=== PATIENT | female | born 1955 | race Caucasian/White ===

== ENCOUNTER 2020-02-02 07:46 | Outpatient (REF) | payer MEDICARE, SELFPAY ==
[2020-02-02 10:12] LABS: MANUAL DIFF FLAG NO
[2020-02-02 10:21] LABS: Basophils Percent Auto 0.8 % (0-2); Eosinophils Absolute Auto 0.1 X10*3/uL (0.0-0.4); Eosinophils Percent Auto 2.4 % (0-4); Hematocrit 41.5 % (37-47); Hemoglobin 13.6 g/dl (12.0-16.0); Imm Gran Abs Auto 0.01 X10*3/uL (0.00-0.03); Imm Gran Pct Auto 0.2 % (0.0-0.4); Lymphocytes Absolute Auto 1.8 X10*3/uL (1.2-4.9); Lymphocytes Percent Auto 32.8 % (20-40); Mean Corpuscular HGB Conc 32.8 g/dl (31.0-35.0); Mean Corpuscular Volume 91.4 fL (80-98); Mean Platelet Volume 10.4 fL (9.4-12.3); Monocytes Absolute Auto 0.5 X10*3/uL (0.1-1.2); Monocytes Percent Auto 9.6 % (2-11); Neutrophils Absolute Auto 2.9 X10*3/uL (2.0-8.3); Neutrophils Percent Auto 54.2 % (45-73); Platelet Count 303 X10*3/uL (160-400); Red Blood Count 4.54 X10*6/uL (4.20-5.50); White Blood Count 5.3 X10*3/uL (4.8-10.8)
[2020-02-02 11:03] LABS: Alanine Aminotransferase 23 U/L (0-31); Albumin Level 4.6 g/dL (3.5-5.0); Alkaline Phosphatase 50 U/L (39-117); Anion Gap 17 (12-20); Aspartate Amino Transferase 23 U/L (5-31); Bilirubin Total 0.8 mg/dL (0.0-1.0); Blood Urea Nitrogen 11 mg/dL (9-16); Calcium 9.6 mg/dL (8.4-10.2); Carbon Dioxide 27 mmol/L (22-29); Chloride 99 mmol/L (96-108); Cholesterol 218 mg/dL; Estimated Glomerular Filt Rate > 60; Glucose Fasting 104 mg/dL (60-99); HDL Cholesterol 99 mg/dL; LDL Cholesterol Calculated 106 mg/dl; Magnesium 2.3 mg/dL (1.6-2.6); Potassium 4.5 mmol/l (3.3-5.1); Sodium 138 mmol/L (135-145); Total Protein 7.5 g/dL (6.5-8.0); Triglycerides 68 mg/dL
[2020-02-02 11:05] LABS: T4 Thyroxine 8.3 ug/dL (4.5-12.0); Thyroid Stimulating Hormone 0.56 uIU/mL (0.32-4.0); Vitamin D 25-OH Total 51.4 ng/mL (>30)
[2020-02-02 12:46] LABS: Folate > 20.0 ng/mL (> or = 4.0); Vitamin B12 1233 pg/mL (200-900)
== END 2020-02-02 07:47 | disposition home or self-care (01) ==
LOC: HO.10HDL 07:46
PROVIDERS: Visit Provider Internal Medicine
DX: E78.00 Pure hypercholesterolemia, unspecified (principal); M81.0 Age-related osteoporosis without current pathological fracture; I10 Essential (primary) hypertension
CPT/HCPCS: 36415; 80053; 80061; 82306; 82607; 82746; 83735; 84436; 84443; 85025

== ENCOUNTER 2020-05-18 07:57 | Outpatient (REF) | payer MEDICARE, SELFPAY ==
--- NOTE | ~2020-05-18 | MM_ITS ---
EXAMINATION: MM SCREENING DIGITAL BREAST TOMOSYNTHESIS, BILATERAL CLINICAL INFORMATION: Screening. Asymptomatic. The lifetime risk of breast cancer based on the Tyrer-Cuzick Model is 5%. COMPARISON: Mammography: 05/13/2019 and prior studies dating back to 04/21/2010 TECHNIQUE: Digital breast tomosynthesis is performed in both the craniocaudal and mediolateral oblique views along with computer-aided detection (CAD). Synthesized 2D images are generated from the tomosynthesis. FINDINGS: There are scattered areas of fibroglandular density (ACR BI-RADS breast composition Category b). There are shifting fibroglandular tissue with scattered stable asymmetries similar to prior studies. There is no significant mass or architectural abnormality or abnormal calcifications. The axilla and skin contours are unremarkable. MM/MM tomosynthesis screening BI IMPRESSION: No significant changes from prior exams. ASSESSMENT: BI-RADS 2: Benign RECOMMENDATION: Routine annual mammography screening. This patient's information was entered into a reminder system with a target due date for their next mammogram.
--- NOTE | ~2020-05-18 | MM_ITS ---
EXAMINATION: BONE DENSITOMETRY CLINICAL INDICATION: Osteoporosis. COMPARISON: Previous BD dated 02/28/2018 and baseline BD dated 04/21/2010. TECHNIQUE: Using a [employer] DXA System (software version: 13.1) manufactured by [employer], dual-energy x-ray absorptiometry was performed of the lumbar spine and left hip. The images are of good technical quality. Summary results are attached. FINDINGS: AP SPINE L1-L4 (excluding L3): The data of L1-L4 has been changed to exclude the L3 vertebral body, because lumbar scoliosis and multilevel degenerative changes may cause overestimation of lumbar spine density. Current: BMD 1.095 g/cm2, Z-score 1.5, T-score -0.6, normal, 551.8% increase from previous, 185.2% increase from baseline (<5% change is not significant). Prior: BMD 0.168 g/cm2. Baseline: BMD 0.384 g/cm2. LEFT FEMUR, NECK: Current: BMD 0.663 g/cm2, Z-score -0.8, T-score -2.7, osteoporosis. Prior: BMD 0.599 g/cm2. Baseline: BMD 0.719 g/cm2. LEFT FEMUR, TOTAL: Current: BMD 0.593 g/cm2, Z-score -1.7, T-score -3.3, osteoporosis, 6.5% increase from previous, 17.5% decrease from baseline (<5% change is not significant). Prior: BMD 0.557 g/cm2. Baseline: BMD 0.719 g/cm2. IDENTIFIED RISK FACTORS: Menopause, height loss, osteoporosis. HISTORY OF FRACTURE: None listed. MEDICATIONS: Fosamax. MM/XR DEXA axial skeleton IMPRESSION: 1. DIAGNOSIS: Osteoporosis based on the lowest T-score value of -3.3 in the total femur applying World Health Organization criteria. 2. 10-YEAR FRACTURE RISK PREDICTION, FRAX: Major osteoporotic fracture (clinical spine, forearm, hip or shoulder) 13.6%. Hip fracture 3.6%. 3. Treatment Recommendations: NOF guidelines recommend consideration for treatment in postmenopausal women and men age 50 and older presenting with the following: -A hip or vertebral (clinical or morphometric) fracture. -T-score less than or equal to -2.5 at the femoral neck or spine after appropriate evaluation to exclude secondary causes. -Low bone mass at the hip or spine and a 10-year fracture probability by FRAX of greater than or equal to 3% for hip fracture or greater than or equal to 20% for major osteoporotic fracture based on the [place] adapted WHO algorithm. 4. Other Recommendations: All treatment decisions require clinical judgment and consideration of individual patient factors, including patient preferences, comorbidities, previous drug use, risk factors not captured in the FRAX model (e.g. frailty, falls, vitamin D deficiency, increased bone turnover, interval significant decline in bone density) and possible under or overestimation of fracture risk by FRAX. Additional medical evaluation for secondary cause of low bone mineral density may be appropriate. FUTURE SCAN RECOMMENDATION: People with diagnosed cases of osteoporosis or at high risk for fracture should have regular bone mineral density tests. For patients eligible for Medicare, routine testing is allowed once every 2 years. The testing frequency can be increased to one year for patients who have rapidly progressing disease, those who are receiving or discontinuing medical therapy to restore bone mass, or have additional risk factors.
== END 2020-05-18 07:58 | disposition home or self-care (01) ==
LOC: HO.MAMMO 07:57
PROVIDERS: PCP Internal Medicine; Visit Provider Internal Medicine
DX: Z12.31 Encounter for screening mammogram for malignant neoplasm of breast (principal); M81.0 Age-related osteoporosis without current pathological fracture; Z78.0 Asymptomatic menopausal state
CPT/HCPCS: 77063; 77067; 77080

== ENCOUNTER 2021-02-02 07:42 | Outpatient (REF) | payer MEDICARE, SELFPAY ==
[2021-02-02 09:55] LABS: MANUAL DIFF FLAG NO
[2021-02-02 09:58] LABS: Basophils Percent Auto 0.7 % (0-2); Eosinophils Absolute Auto 0.2 X10*3/uL (0.0-0.4); Eosinophils Percent Auto 2.7 % (0-4); Hematocrit 38.8 % (37.0-47.0); Hemoglobin 13.4 g/dl (12.0-16.0); Imm Gran Abs Auto 0.01 X10*3/uL (0.00-0.03); Imm Gran Pct Auto 0.2 % (0.0-0.4); Lymphocytes Percent Auto 36.1 % (20-40); Mean Corpuscular HGB Conc 34.5 g/dl (31.0-35.0); Mean Corpuscular Hemoglobin 31.1 pg (27.0-33.0); Mean Platelet Volume 10.5 fL (9.4-12.3); Monocytes Absolute Auto 0.5 X10*3/uL (0.1-1.2); Monocytes Percent Auto 8.5 % (2-11); Neutrophils Absolute Auto 2.9 x10*3/uL (2.0-8.3); Neutrophils Percent Auto 51.8 % (45-73); Platelet Count 287 X10*3/uL (160-400); Red Blood Count 4.31 X10*6/uL (4.20-5.50); Red Cell Distribution Width 11.9 % (11.0-16.0); White Blood Count 5.5 X10*3/uL (4.8-10.8)
[2021-02-02 10:14] LABS: Estimated Average Glucose 117 mg/dL; Hemoglobin A1c % 5.7 %
[2021-02-02 10:48] LABS: Alanine Aminotransferase 21 U/L (0-31); Albumin Level 4.6 g/dL (3.5-5.0); Alkaline Phosphatase 49 U/L (39-117); Anion Gap 15 (12-20); Aspartate Amino Transferase 21 U/L (5-31); Bilirubin Total 0.7 mg/dL (0.0-1.0); Blood Urea Nitrogen 12 mg/dL (9-16); Carbon Dioxide 25 mmol/L (22-29); Chloride 103 mmol/L (96-108); Cholesterol 228 mg/dL; Estimated Glomerular Filt Rate > 60; Glucose Random 103 mg/dL (60-115); HDL Cholesterol 97 mg/dL; LDL Cholesterol Calculated 116 mg/dl; Potassium 4.3 mmol/L (3.3-5.1); Sodium 139 mmol/L (135-145); Total Protein 7.7 g/dL (6.5-8.0); Triglycerides 75 mg/dL
[2021-02-02 10:56] LABS: Free T4 (Free Thyroxine) 1.01 ng/dL (0.71-1.85); Thyroid Stimulating Hormone 0.96 uIU/mL (0.32-4.0); Vitamin D 25-OH Total 43.1 ng/mL (>30)
[2021-02-02 11:08] LABS: Folate > 20.0 ng/mL (> or = 4.0); Vitamin B12 1186 pg/mL (200-900)
== END 2021-02-02 07:43 | disposition home or self-care (01) ==
LOC: HO.10HDL 07:42
PROVIDERS: Visit Provider Internal Medicine
DX: R73.02 Impaired glucose tolerance (oral) (principal); M81.0 Age-related osteoporosis without current pathological fracture; E78.00 Pure hypercholesterolemia, unspecified; I10 Essential (primary) hypertension
CPT/HCPCS: 36415; 80053; 80061; 82306; 82607; 82746; 83036; 84439; 84443; 85025

== ENCOUNTER 2022-01-26 07:44 | Outpatient (REF) | payer MEDICARE, SELFPAY ==
[2022-01-26 10:33] LABS: MANUAL DIFF FLAG NO
[2022-01-26 10:47] LABS: Basophils Percent Auto 0.3 % (0-2); Eosinophils Absolute Auto 0.1 X10*3/uL (0.0-0.4); Eosinophils Percent Auto 1.3 % (0-4); Hemoglobin 13.2 g/dl (12.0-16.0); Imm Gran Abs Auto 0.01 X10*3/uL (0.00-0.03); Imm Gran Pct Auto 0.1 % (0.0-0.4); Lymphocytes Absolute Auto 1.5 X10*3/uL (1.2-4.9); Lymphocytes Percent Auto 21.1 % (20-40); Mean Corpuscular HGB Conc 33.8 g/dl (31.0-35.0); Mean Corpuscular Hemoglobin 30.3 pg (27.0-33.0); Mean Corpuscular Volume 89.7 fL (80.0-98.0); Mean Platelet Volume 10.1 fL (9.4-12.3); Monocytes Absolute Auto 0.6 X10*3/uL (0.1-1.2); Monocytes Percent Auto 7.8 % (2-11); Neutrophils Absolute Auto 4.9 x10*3/uL (2.0-8.3); Neutrophils Percent Auto 69.4 % (45-73); Platelet Count 282 X10*3/uL (160-400); Red Blood Count 4.35 X10*6/uL (4.20-5.50); Red Cell Distribution Width 12.5 % (11.0-16.0); White Blood Count 7.1 X10*3/uL (4.8-10.8)
[2022-01-26 11:07] LABS: Estimated Average Glucose 117 mg/dL; Hemoglobin A1c % 5.7 %
[2022-01-26 11:28] LABS: Alanine Aminotransferase 22 U/L (0-31); Albumin Level 4.6 g/dL (3.5-5.0); Alkaline Phosphatase 45 U/L (39-117); Anion Gap 17 (12-20); Aspartate Amino Transferase 22 U/L (5-31); Bilirubin Total 0.9 mg/dL (0.0-1.0); Blood Urea Nitrogen 12 mg/dL (9-16); Calcium 9.5 mg/dL (8.4-10.2); Carbon Dioxide 24 mmol/L (22-29); Chloride 102 mmol/L (96-108); Cholesterol 223 mg/dL; Estimated Glomerular Filt Rate > 60; Glucose Fasting 95 mg/dL (60-99); HDL Cholesterol 100 mg/dL; LDL Cholesterol Calculated 112 mg/dl; Sodium 139 mmol/L (135-145); Total Protein 7.4 g/dL (6.5-8.0); Triglycerides 57 mg/dL
[2022-01-26 11:31] LABS: TSH reflex Free T4 0.57 uIU/mL (0.32-4.0)
== END 2022-01-26 07:45 | disposition home or self-care (01) ==
LOC: HO.10HDL 07:44
PROVIDERS: Visit Provider Nurse Practitioner Family
DX: Z13.29 Encounter for screening for other suspected endocrine disorder (principal); I10 Essential (primary) hypertension; E78.00 Pure hypercholesterolemia, unspecified; R73.02 Impaired glucose tolerance (oral)
CPT/HCPCS: 36415; 80053; 80061; 83036; 84443; 85025

== ENCOUNTER → 2022-02-22 08:08 | Outpatient (BNVA) | payer MEDICARE, SELFPAY | PROVIDERS: PCP Internal Medicine; Referring Provider Internal Medicine; Visit Provider Physician Assistant | DX: D12.6 Benign neoplasm of colon, unspecified (principal); Z80.0 Family history of malignant neoplasm of digestive organs | CPT/HCPCS: 99202 ==

== ENCOUNTER 2022-03-07 07:24 | Outpatient (REF) | payer MEDICARE, SELFPAY ==
--- NOTE | ~2022-03-07 | MM_ITS ---
EXAMINATION: MM SCREENING DIGITAL BREAST TOMOSYNTHESIS, BILATERAL CLINICAL INFORMATION: Screening. Asymptomatic. The lifetime risk of breast cancer based on the Tyrer-Cuzick Model is 3.5%. COMPARISON: Mammography: May 18, 2020 and studies dating back to February 10, 2015 TECHNIQUE: Digital breast tomosynthesis is performed in both the craniocaudal and mediolateral oblique views along with computer-aided detection (CAD). Synthesized 2D images are generated from the tomosynthesis. FINDINGS: The breasts are heterogeneously dense, which may obscure small masses (ACR BI-RADS breast composition Category c). There are no new significant masses, abnormal calcifications, or other abnormalities. MM/MM tomosynthesis screening BI IMPRESSION: No significant changes from prior exam. ASSESSMENT: BI-RADS 1: Negative RECOMMENDATION: Routine annual mammography screening. This patient's information was entered into a reminder system with a target due date for their next mammogram.
== END 2022-03-07 07:25 | disposition home or self-care (01) ==
LOC: HO.MAMMO 07:24
PROVIDERS: PCP Internal Medicine; Visit Provider Internal Medicine
DX: Z12.31 Encounter for screening mammogram for malignant neoplasm of breast (principal)
CPT/HCPCS: 77063; 77067

== ENCOUNTER 2022-07-21 07:06 | Day surgery (SDC) | payer MEDICARE, SELFPAY ==
[2022-07-18 10:32] VITALS: BMI 17.6
--- NOTE | 2022-07-20 08:50 | HO.ANESPROP2 ---
Documented by User: Lisa Isaac NP 07/20/22 08:50 HPI - Anesthesia Eval Consult details Narrative: 67yo F for Colonoscopy PMFSH Active Problems Active Problems: All Active Problems (Updated 02/22/22 @ 08:52 by April Ferguson PA-C) Annual physical exam (Acute) Impaired glucose tolerance (Acute) Screening for hypothyroidism (Acute) Encounter for subsequent annual wellness visit (AWV) in Medicare patient (Acute) Breast cancer screening by mammogram (Acute) Tubular adenoma of colon (Acute) Family history of colon cancer (Acute) Hypercholesterolemia (Acute) Osteoporosis (Acute) Hypertension (Acute) Past Medical History Medical History Hypercholesterolemia Hypertension Osteoporosis Family History Family History Father Lung cancer Hypertension Mother Bladder cancer Hypertension Kidney malignancy Brother Colon cancer Sister Colon cancer Surgical History Surgical History History of appendectomy History of colonoscopy Social History Social History Housing: [facility] Alcohol intake: current Alcohol intake frequency: a few times a month Alcohol type: wine Patient Tobacco Use Status: Former Tobacco user Years Smoked: 1985 Are you DNR?: No Advance Directives: No Advance Directives Information Provided: Yes Nutrition Risks: No Nutritional Risk service: No Current occupational status: retired Meds Allergies Allergy/AdvReac Type Severity Reaction Status Date / Time tree nut [TREE NUT] Allergy Intermediate MOUTH Verified 02/22/22 08:12 ITCHES nuts Allergy Unknown oral Uncoded 02/14/22 10:04 swelling Exam Exam Date and Time: July 20, 2022 0850 Height,Weight and Vital Signs: Height 5 ft 5 in Weight 48.081 kg Assessment and Plan Assessment Anesthesia Assessment: Chart Reviewed Documented by User: Isabel Anderson MD 07/21/22 08:55 PMF Past Medical History Medical History Hypercholesterolemia Hypertension Osteoporosis Family History Family History Father Lung cancer Hypertension Mother Bladder cancer Hypertension Kidney malignancy Brother Colon cancer Sister Colon cancer Surgical History Surgical History History of appendectomy History of colonoscopy History of Problems with Anesthesia: No Social History Social History Housing: [facility] Alcohol intake: current Alcohol intake frequency: a few times a month Alcohol type: wine Patient Tobacco Use Status: Former Tobacco user Years Smoked: 1984 Are you DNR?: No Advance Directives: No Advance Directives Information Provided: Yes Nutrition Risks: No Nutritional Risk service: No Current occupational status: retired Meds Allergies Allergy/AdvReac Type Severity Reaction Status Date / Time tree nut [TREE NUT] Allergy Intermediate MOUTH Verified 02/22/22 08:12 ITCHES nuts Allergy Unknown oral Uncoded 02/14/22 10:04 swelling Exam Airway Mallampati Class: II TM Dist: >3cm Neck ROM: Full Loose/Missing/Broken Teeth: No Heart: RRR Lungs: CTA Assessment and Plan Assessment Anesthesia Assessment: Anesthesia Plan Discussed Final Anesthetic Review History of Problems with Anesthesia: No NPO: Yes ASA Class: II Final Preanesthetic Review: Meds/Allgs Chart Reviewed, Consent Obtained/Reviewed and Anes Risks/Benef Reviewed Patient Risk: Low Procedure Risk: Low Anesthetic Plan Anesthetic Plan: MAC: Disposition: Standard PACU
--- NOTE | 2022-07-21 07:20 | MHC.SHP ---
Pre-Procedural Eval Section A Date of Service: 07/21/22 The patient is an INPATIENT: No The History & Physical has been completed within 30 days and I have reviewed it.: No Section B Chief Complaint: Benign neoplasm of colon, Relevant Family History (Specify if Yes): Yes Relevant Social History: Tobacco Use (Former smoker) Present Medications: see Short Stay Collaborative assessment Medical History: Significant History (Hypercholesterolemia Hypertension Osteoporosis) History of Previous Operations: Relevant previous surgery/procedure and date(s) (History of appendectomy History of colonoscopy) Allergies: Allergies Allergy/AdvReac Type Severity Reaction Status Date / Time tree nut [TREE NUT] Allergy Intermediate MOUTH Verified 02/22/22 08:12 ITCHES nuts Allergy Unknown oral Uncoded 02/14/22 10:04 swelling Review of Systems Sugical H&P ROS: Negative: Constitution, Cardiovascular, Respiratory and Gastrointestinal Exam Surgical H&P Exam: Normal: Heart, Normal: Lungs, Normal: Extremities and Normal: Abdomen Plan Diagnosis/Plan: Unchanged I have reviewed the history and physical and performed a pertinent physical examination on my patient. No changes have occurred unless specified. Time Spent With Patient Time: Total time managing care of this patient today ____ minutes.
[2022-07-21] MEDS: Lactated Ringers 1,000 ML 100 ML IVCONT (07:28)
[2022-07-21 07:29] VITALS: BP 138/78; PULSE 83; RESP 18; TEMP 36.6; O2SAT 100
--- NOTE | 2022-07-21 08:25 | W.PM.OPN ---
Operative Note Operative Note Date of Service: 07/21/22 Narrative: COLONOSCOPY TILL CECUM WITH BIOPSIES Pre-op diagnosis: Colon cancer screening, history of colon polyps, family history of colon cancer (brother and sister) Post-op diagnosis:? Colon polyps, diverticulosis, hemorrhoids Endoscopist:? Viola Pompa MD Anesthesia:?MAC Consent: Indications for the procedure and potential complications of bleeding, perforation, reaction to medications and missed diagnosis were discussed with the patient and informed consent was obtained. Instrument: Olympus PCF H 190 L variable stiffness pediatric colonoscope Monitoring: Vital signs and clinical assessment, intermittent blood pressure monitoring, continuous EKG monitoring, Pulse oximetry and Carbon Dioxide monitoring were done throughout the procedure. Please see anesthesia flowsheet. Colon withdrawl time was 20 minutes. Procedure: The patient was placed in the left lateral decubitis position and pre-procedure medications were administered. After a digital rectal examination of the ano-rectum, the video colonoscope was inserted into the rectum and advanced through the colon to the cecum. The colonoscope was slowly withdrawn in a retrograde panoramic fashion and the colon mucosa was carefully examined including a retroflexed view of the rectum. Findings and interventions are described below. Procedure Difficulty: Colon was long and tortuous and there was spasm and some loop formation Findings: Terminal Ileum: Not evaluated Cecum: Normal Ascending Colon: Two 5-7 mm sessile polyps - removed with a cold biopsy Transverse Colon: A 6-7 mm sessile polyp - removed with a cold bx Descending Colon: Normal Sigmoid Colon: Moderate diverticulosis Rectum: Normal Ano-rectum: Hypertrophied anal papillae. Colon preparation: Excellent Impression and Post Procedure Diagnosis: Colonoscopy Findings: Three small polyps removed Moderate diverticulosis seen in the sigmoid colon Plan: Await pathology results Patient has an appointment on 08/07/22 in the GI Clinic with MIRANDA Varela. Repeat Colonoscopy interval based on path results - in 5 years if polyps are adenomatous and due to family hx of colon cancer (brother and sister). Above findings were reviewed with the patient and colon polyps and diverticulosis handouts were given in the discharge area
[2022-07-21 09:23] VITALS: BP 95/68; PULSE 77; RESP 16; TEMP 36.8; O2SAT 100
[2022-07-21 09:38] VITALS: BP 120/73; PULSE 67; RESP 16; TEMP 36.8; O2SAT 100
== END 2022-07-21 10:15 | disposition home or self-care (01) ==
PROVIDERS: PCP Internal Medicine; Visit Provider Internal Medicine Gastroenterology
PROC: 0DJD8ZZ Inspection of Lower Intestinal Tract, Via Natural or Artificial Opening Endoscopic (ICD-10-PCS; CPT 45378; principal; 2022-07-21 08:30)
DX: Z12.11 Encounter for screening for malignant neoplasm of colon (principal); K63.5 Polyp of colon; K57.30 Diverticulosis of large intestine without perforation or abscess without bleeding; K62.89 Other specified diseases of anus and rectum; K56.2 Volvulus; Z86.010 Personal history of colon polyps; Z80.0 Family history of malignant neoplasm of digestive organs; I10 Essential (primary) hypertension; Z79.899 Other long term (current) drug therapy
CPT/HCPCS: 45380; 88305

== ENCOUNTER → 2022-08-07 08:12 | Outpatient (BNVA) | payer MEDICARE, SELFPAY | PROVIDERS: PCP Internal Medicine; Referring Provider Internal Medicine; Visit Provider Physician Assistant | DX: K57.30 Diverticulosis of large intestine without perforation or abscess without bleeding (principal); K63.5 Polyp of colon; Z98.890 Other specified postprocedural states | CPT/HCPCS: 99212 ==

== ENCOUNTER 2023-02-06 08:00 | Outpatient (REF) | payer MEDICARE, SELFPAY ==
[2023-02-06 10:32] LABS: MANUAL DIFF FLAG NO
[2023-02-06 10:41] LABS: Basophils Percent Auto 0.5 % (0-2); Eosinophils Absolute Auto 0.1 X10*3/uL (0.0-0.4); Eosinophils Percent Auto 2.1 % (0-4); Hematocrit 40.2 % (37.0-47.0); Hemoglobin 13.3 g/dl (12.0-16.0); Lymphocytes Absolute Auto 1.6 X10*3/uL (1.2-4.9); Mean Corpuscular HGB Conc 33.1 g/dl (31.0-35.0); Mean Corpuscular Hemoglobin 30.4 pg (27.0-33.0); Mean Corpuscular Volume 91.8 fL (80.0-98.0); Mean Platelet Volume 10.2 fL (9.4-12.3); Monocytes Absolute Auto 0.6 X10*3/uL (0.1-1.2); Monocytes Percent Auto 9.6 % (2-11); Neutrophils Absolute Auto 3.9 x10*3/uL (2.0-8.3); Neutrophils Percent Auto 62.8 % (45-73); Platelet Count 297 X10*3/uL (160-400); Red Blood Count 4.38 X10*6/uL (4.20-5.50); White Blood Count 6.3 X10*3/uL (4.8-10.8)
[2023-02-06 11:05] LABS: Alanine Aminotransferase 24 U/L (0-31); Albumin Level 4.4 g/dL (3.5-5.0); Alkaline Phosphatase 46 U/L (39-117); Anion Gap 11 (12-20); Aspartate Amino Transferase 24 U/L (5-31); Bilirubin Total 0.8 mg/dL (0.0-1.0); Blood Urea Nitrogen 15 mg/dL (9-16); Calcium 10.1 mg/dL (8.4-10.2); Carbon Dioxide 29 mmol/L (22-29); Chloride 101 mmol/L (96-108); Cholesterol 223 mg/dL (<200); Estimated Glomerular Filt Rate > 60; Glucose Random 104 mg/dL (60-115); HDL Cholesterol 98 mg/dL (>40); LDL Cholesterol Calculated 114 mg/dL (<100); Potassium 4.6 mmol/L (3.3-5.1); Sodium 136 mmol/L (135-145); Total Protein 7.6 g/dL (6.5-8.0); Triglycerides 55 mg/dL (<150)
[2023-02-06 11:21] LABS: Thyroid Stimulating Hormone 0.61 uIU/mL (0.32-4.0); Vitamin D 25-OH Total 54.6 ng/mL (>30)
[2023-02-06 11:28] LABS: Folate > 20.0 ng/mL (> or = 4.0); Vitamin B12 1311 pg/mL (200-900)
== END 2023-02-06 08:01 | disposition home or self-care (01) ==
LOC: HO.10HDL 08:00
PROVIDERS: Visit Provider Internal Medicine
DX: E78.00 Pure hypercholesterolemia, unspecified (principal); M81.0 Age-related osteoporosis without current pathological fracture
CPT/HCPCS: 36415; 80053; 80061; 82306; 82607; 82746; 84439; 84443; 85025

== ENCOUNTER 2023-03-09 07:22 | Outpatient (REF) | payer MEDICARE, SELFPAY ==
--- NOTE | ~2023-03-09 | MM_ITS ---
EXAMINATION: BONE DENSITOMETRY CLINICAL INDICATION: Osteoporosis. COMPARISON: Previous BD dated 05/18/2020 and baseline BD dated 04/21/2010. TECHNIQUE: Using a [employer] DXA System (software version: 13.1) manufactured by [employer], dual-energy x-ray absorptiometry was performed of the lumbar spine and left hip. The images are of good technical quality. Summary results are attached. FINDINGS: LEFT FEMUR, NECK: Current: BMD 0.632 g/cm2, Z-score -0.9, T-score -2.9, osteoporosis. Prior: BMD 0.663 g/cm2. Baseline: BMD 0.719 g/cm2. LEFT FEMUR, TOTAL: Current: BMD 0.623 g/cm2, Z-score -1.2, T-score -3.0, osteoporosis, 5.1% increase from previous, 13.4% decrease from baseline (<5% change is not significant). Prior: BMD 0.593 g/cm2. Baseline: BMD 0.719 g/cm2. AP SPINE L3-L4 (excluding L1 and L2): The data of L1-L4 has been changed to exclude the L1 and L2 vertebral bodies, because degenerative sclerosis and scoliosis at these levels may cause overestimation of lumbar spine density. Current: BMD 1.139 g/cm2, Z-score 1.7, T-score -0.5, normal, 14.6% increase from previous, 6.9% increase from baseline (<5% change is not significant). Prior: BMD 0.994 g/cm2. Baseline: BMD 1.065 g/cm2. IDENTIFIED RISK FACTORS: Menopause, height loss, osteoporosis. HISTORY OF FRACTURE: None listed. MEDICATIONS: Multivitamin, bisphosphonate. MM/XR DEXA axial skeleton IMPRESSION: 1. DIAGNOSIS: Osteoporosis based on the lowest T-score value of -3.0 in the total femur applying World Health Organization criteria. 2. 10-YEAR FRACTURE RISK PREDICTION, FRAX: According to the guidelines, FRAX calculation should only be performed on patients in the osteopenia bone density category. Therefore, FRAX was not performed on this patient. 3. Treatment Recommendations: NOF guidelines recommend consideration for treatment in postmenopausal women and men age 50 and older presenting with the following: -A hip or vertebral (clinical or morphometric) fracture. -T-score less than or equal to -2.5 at the femoral neck or spine after appropriate evaluation to exclude secondary causes. -Low bone mass at the hip or spine and a 10-year fracture probability by FRAX of greater than or equal to 3% for hip fracture or greater than or equal to 20% for major osteoporotic fracture based on the [place] adapted WHO algorithm. 4. Other Recommendations: All treatment decisions require clinical judgment and consideration of individual patient factors, including patient preferences, comorbidities, previous drug use, risk factors not captured in the FRAX model (e.g. frailty, falls, vitamin D deficiency, increased bone turnover, interval significant decline in bone density) and possible under or overestimation of fracture risk by FRAX. Additional medical evaluation for secondary cause of low bone mineral density may be appropriate. FUTURE SCAN RECOMMENDATION: People with diagnosed cases of osteoporosis or at high risk for fracture should have regular bone mineral density tests. For patients eligible for Medicare, routine testing is allowed once every 2 years. The testing frequency can be increased to one year for patients who have rapidly progressing disease, those who are receiving or discontinuing medical therapy to restore bone mass, or have additional risk factors.
== END 2023-03-09 07:23 | disposition home or self-care (01) ==
LOC: HO.MAMMO 07:22
PROVIDERS: PCP Internal Medicine; Visit Provider Internal Medicine
DX: Z12.31 Encounter for screening mammogram for malignant neoplasm of breast (principal); Z13.820 Encounter for screening for osteoporosis; M81.0 Age-related osteoporosis without current pathological fracture; Z78.0 Asymptomatic menopausal state
CPT/HCPCS: 77063; 77067; 77080

== ENCOUNTER → 2023-03-09 07:45 | Outpatient (BNV) | payer MEDICARE, SELFPAY | PROVIDERS: PCP Internal Medicine; Visit Provider Radiology Diagnostic Radiology | DX: Z12.31 Encounter for screening mammogram for malignant neoplasm of breast (principal) | CPT/HCPCS: 77063; 77067 ==

== ENCOUNTER 2023-03-26 09:11 | Outpatient (AMB) | payer MEDICARE, SELFPAY ==
[2023-03-26 09:34] VITALS: BP 128/72; PULSE 88; RESP 17; BMI 20.8
--- NOTE | 2023-03-26 09:41 | AM.OFFVISMDC ---
Intake Vital Signs 03/26/23 09:34 Height 4 ft 11.45 in Weight 104 lb 8 oz BMI 20.8 BP 128/72 Blood Pressure Location Lt brachial Position Sitting Respiration 17 Pulse 88 Pulse Source Palpation Intake Visit Reasons: SWV G0439 Intake Note: Patient is here for an Annual Wellness Visit. 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 Today we discussed her [place] of care and end of life planning.. Mammogram: Done February 2023 BI-RADS 1 Bone density- done February 2023 T-score -3.0 better from 2020 T-score -3.3 Vaccines: Up-to-date with COVID vaccine, needs pneumonia, flu and tetanus vaccine Colon cancer screening: Laboratory Tests 01/26/22 02/06/23 07:50 09:05 Random Glucose 104 Fasting Glucose 95 Cholesterol 223 H LDL Cholesterol, C alc 114 H TSH 0.61 HPI Comments History of Present Illness Details reviewed past medical history- yes reviewed surgical / hospitalization history- yes reviewed current medications- yes reviewed family history- yes home safety throw rugs? grab bars? raised toilet seat? working smoke detectors? activities of daily living difficulty bathing or showering? difficulty dressing? difficulty using the toilet? difficulty getting in and out of bed? difficulty walking? receives help from other person's with any of the above tasks? instrumental activities of daily living uses telephone - gets to place out of walking distance- go shopping for groceries- repairs own meals- does own minor home maintenance- does own laundry- does own housework- manages own money- currently takes medication- end of life planning discussed advanced directives- yes advanced directives on file? discussed wishes expressed in advanced directives. fall risk have you had any falls with injuries in the past year? have you had 2 or more falls in the past year? fall risk assessment: [facility] Medical History Tubular adenoma of colon Breast cancer screening by mammogram Screening for hypothyroidism Hypercholesterolemia Osteoporosis Hypertension Surgical History History of colonoscopy History of appendectomy Family History Father Lung cancer Hypertension Mother Bladder cancer Hypertension Kidney malignancy Brother Colon cancer Sister Colon cancer Social History Housing: Condominium Alcohol intake: current Alcohol intake frequency: a few times a month Alcohol type: wine Patient Tobacco Use Status: Former Tobacco user Years Smoked: 1984 service: No Current occupational status: retired Cognitive needs: No Hearing needs: No Vision needs: No Questionnaire Medicare Wellness Checkup What [age] What gender do you identify with?: female During the past 4 weeks, how much have you been bothered by emotional problems such as feeling anxious, depressed, irritable, sad or downhearted, and blue?: not at all During the past 4 weeks, has your physical & emotional health limited your social activities with family, friends, neighbors, or groups?: not at all During the past 4 weeks, how much bodily pain have you generally had?: no pain During the past 4 weeks, was someone available to help you if you needed & wanted help?: yes, as much as I wanted During the past 4 weeks, what was the hardest physical activity you could do for at least 2 minutes?: moderate Can you get to places out of walking distance without help? (For eg., can you travel alone on buses, taxis or drive your car?): Yes Can you go shopping for groceries or clothes without someone's help?: Yes Can you prepare your own meals?: Yes Can you do your housework without help?: Yes Because of any health problems, do you need the help of another person with your personal care needs such as eating, bathing, dressing or getting around the house?: No Can you handle your own money without help?: Yes During the past 4 weeks, how would you rate your health in general?: good During the past 4 weeks how have things been going for you?: pretty well Are you having difficulties driving your car?: no Do you always fasten your seat belt when you are in a car?: yes, usually During past 4 weeks, have you been bothered by the following: never: Falling or dizzy when standing up, Sexual problems?, Trouble eating well?, Teeth or denture problems?, Problems using the telephone? and Tiredness or fatigue? Have you fallen 2 or more times in the past year?: No Are you afraid of falling?: No Are you a smoker?: no During the past 4 weeks, how many drinks of wine, beer, or other alcoholic beverages did you have?: 2-5 drinks per week Do you exercise for about 20 minutes 3 or more times a week?: yes, all the time Have you been given information to help with the following?: no: Hazards in your house that might hurt you? and no: Keeping track of your medications? How often do you have trouble taking medicines the way you have been told to take them?: I always take medicine as prescribed How confident are you that you can control & manage most of your health problems?: very confident What is your race?: White Activity of Daily Living Bathing - sponge bath, tub bath or shower: receives no assistance (gets in/out by self, if usual bathing means Dressing - getting clothes from closets & drawers, including inner/outer garments & fasteners.: gets clothes & gets completely dressed without help Toileting - going to the 'toilet room' for urine/bowel elimination & cleaning self/arranging clothes: goes to toilet room, cleans self, arranges clothes without help Transfer: moves in & out of bed and chair without help (may use support object) Continence: controls urination/bowel movements completely by self Feeding: feeds self without help Total Score: 0 Information obtained from: patient Using telephone: independent Traveling: independent Shopping: independent Preparing meals: independent Housework: independent Taking medicine: independent Managing money: independent PHQ-9 Over the last 2 weeks, how often have you been bothered by any of the following problems? 1. Little interest or pleasure in doing things: not at all 2. Feeling down, depressed, or hopeless: not at all 3. Trouble falling or staying asleep, or sleeping too much: several days 4. Feeling tired or having little energy: not at all 5. Poor appetite or overeating: not at all 6. Feeling bad about yourself - or that you are a failure or have let yourself or your family down: not at all 7. Trouble concentrating on things, such as reading the newspaper or watching television: not at all 8. Moving or speaking so slowly that other people could have noticed. Or the opposite - being so fidgety or restless that you have been moving around a lot more than usual: not at all 9. Thoughts that you would be better off or of hurting yourself in some way: not at all Total score: 1 Depression Screening Interpretation: Negative Depression Screening Done: Yes 81128 - PHQ-9 Billing: Yes Source: Developed by Drs. Faustino Ponce, Jacinta Fuller, Patrice Ch and colleagues, with an educational daniel from [employer]. Thrive Questionnaire Date Thrive assessed: 03/26/23 I am a: Patient What is your living situation today?: I have a steady place to live Within the past 12 months, did the food you bought not last and you didn't have the money to get more?: Never true Within the past 12 months, did you worry whether your food would run out before you got money to buy more?: Never true Do you have trouble paying for medicines?: No Do you have trouble getting transportation to medical appointments?: No Do you have trouble paying your heating and electricity bill?: No Do you have trouble taking care of your child, family member or friend?: No Do you have trouble with day-to-day activities such as bathing, preparing meals, shopping, managing finances, etc.?: No Are you currently unemployed and looking for a job?: No Are you interested in more education?: No Please select the resources that you would like help with: None Currently or been in a relationship where the following occur: no concerns reported Physical Exam Vital Signs: Last Vital Signs Pulse 88 03/26/23 09:34 Resp 17 03/26/23 09:34 BP 128/72 03/26/23 09:34 BMI result Body Mass Index 20.8 HEENT Other: hearing screening whisper test- pass Eyes Other: vision screening- 20 OS/ OD/ OU Other: urinary incontinence? no Neuro Other: balance Romberg- normal tandem walk test- able walk-in turned test- able rise from sit to stand- within 2 seconds Assessment & Plan Assessment & Plan (1) Encounter for subsequent annual wellness visit (AWV) in Medicare patient: Code(s): Z00.00 - Encounter for general adult medical examination without abnormal findings Plan: As per HPI EKG done in July of 2022 Quality Reporting (2019) Depression/Bipolar (159/160/161/177) PHQ-9: Total score: 1 Coding Level of Care Code Medicare Subsequent (G0439) Diagnoses Encounter for subsequent annual wellness visit (AWV) in Medicare patient Z00.00 CPT Codes Advance Care Planning - Advance Care Planning discussion: On file, no changes ([id number]) Advance Care Planning - Time spent: 1-15 minutes, on File ([id number]) Advance Care Planning Advance Care Planning discussion: On file, no changes Date of discussion: 03/26/23 Forms completed: MOLST Time spent: 1-15 minutes, on File Actual minutes spent: 2
== END 2023-03-26 10:05 | disposition home or self-care (01) ==
PROVIDERS: Visit Provider Physician Assistant
DX: Z00.00 Encounter for general adult medical examination without abnormal findings (principal); E78.00 Pure hypercholesterolemia, unspecified; Z86.010 Personal history of colon polyps
CPT/HCPCS: 1123F; G0439

== ENCOUNTER 2023-12-03 08:30 | Outpatient (AMB) | payer MEDICARE, SELFPAY ==
[2023-12-03 08:44] VITALS: BP 122/72; PULSE 64; O2SAT 98; BMI 21.0
--- NOTE | 2023-12-03 08:44 | MHC.PC.OV ---
Vital Signs 12/03/23 08:44 Height 4 ft 11 in Weight 104 lb BMI 21.0 BP 122/72 Blood Pressure Location Lt brachial Position Sitting Pulse 64 Pulse Source Pulse Oximeter Pulse Oximetry (%) 98 Oxygen Delivery Method Room Air Intake Visit Reasons: Cataract surgery on RT eye 12/17 Dr. Woods Note: Patient requests today's office note gets faxed to [facility]. 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 Accompanied by: Self / Same As Patient Allergies tree nut [TREE NUT] Allergy (Intermediate, Verified 12/03/23 09:07) MOUTH ITCHES nuts Allergy (Unknown, Uncoded 12/03/23 09:07) oral swelling Medication List - Last Reconciled 12/03/23 by Nahomy Ramesh PA-C alendronate (Fosamax) 70 mg PO QWEEK 90 days lisinopril 20 mg PO DAILY simvastatin 5 mg PO QPM Tobacco use date assessed: 12/03/23 Fall risk assessment: No Falls in past year Last assessed Fall Risk: 12/03/23 Dental Screening Dental Screen Date: 12/03/23 Did you have a dental visit in the last 12 months?: Yes Did you have a dental problem in the last 6 months where you did not have access to dental care?: No Was dental information given to patient?: Patient has dentist CRISTIANE Cataract surgery on RT eye 12/17 Dr. SAUER Details 68-year-old female with past medical history of osteoporosis, hypertension, hypercholesterolemia and impaired glucose tolerance coming in for preoperative visit. Patient is scheduled to have right eye cataract surgery on 12/18/2023 left eye surgery 01/01/2024 with [facility]. Patient has no history of CHF, CO, CVA, or diabetes mellitus. She has had anesthesia in the past with no issue. Hypertension: Currently on lisinopril 20 mg. Blood pressure 122/72 today in the office. Impaired glucose tolerance: Last A1c 5.7% not currently on medical management. [facility] Medical History Tubular adenoma of colon Breast cancer screening by mammogram Screening for hypothyroidism Hypercholesterolemia Osteoporosis Hypertension Surgical History History of colonoscopy History of appendectomy Family History Father Lung cancer Hypertension Mother Bladder cancer Hypertension Kidney malignancy Brother Colon cancer Sister Colon cancer Social History Housing: [facility] Alcohol intake: current Alcohol intake frequency: a few times a month Alcohol type: wine Patient Tobacco Use Status: Former Tobacco user Tobacco use type: Cigarette Years Smoked: 1984 e-Cigarette/Vaping Use: Never Used service: No Current occupational status: retired Cognitive needs: No Hearing needs: No Vision needs: No Questionnaire PHQ-9 Over the last 2 weeks, how often have you been bothered by any of the following problems? 1. Little interest or pleasure in doing things: not at all 2. Feeling down, depressed, or hopeless: not at all 3. Trouble falling or staying asleep, or sleeping too much: several days 4. Feeling tired or having little energy: not at all 5. Poor appetite or overeating: not at all 6. Feeling bad about yourself - or that you are a failure or have let yourself or your family down: not at all 7. Trouble concentrating on things, such as reading the newspaper or watching television: not at all 8. Moving or speaking so slowly that other people could have noticed. Or the opposite - being so fidgety or restless that you have been moving around a lot more than usual: not at all 9. Thoughts that you would be better off or of hurting yourself in some way: not at all Total score: 1 Depression Screening Interpretation: Negative Depression Screening Done: Yes 55260 - PHQ-9 Billing: Yes Source: Developed by Drs. Faustino Ponce, Jacinta Fuller, Patrice Ch and colleagues, with an educational daniel from [employer]. Thrive Questionnaire Date Thrive assessed: 03/26/23 Are you currently unemployed and looking for a job?: No AUDIT C Alcohol Use Questionnaire (AUDIT-C) 1. How often do you have a drink containing alcohol?: 2-4 times a month 2. How many drinks containing alcohol do you have on a typical day when you are drinking?: 1 or 2 3. How often do you have six or more drinks on one occasion?: Never Total Score: 2 Score Reviewed/Action Taken: No TAWNYA-7 AMB Questionnaire TAWNYA-7 Date TAWNYA - 7 assessed: 12/03/23 Feeling nervous, anxious, or on edge: 0 = Not at all Not being able to stop or control worryin = Not at all Worrying too much about different things: 0 = Not at all Trouble relaxin = Not at all Being so restless that it is hard to sit still: 0 = Not at all Becoming easily annoyed or irritable: 0 = Not at all Feeling afraid as if something awful might happen: 0 = Not at all Total TAWNYA-7 score (0-4 normal; 5-9 mild; 10-14 moderate; 15-21 severe): 0 Source: Developed by Drs. Faustino Ponce, Jacinta Fuller, Patrice Ch and colleagues, with an educational daniel from [employer]. TAWNYA-7 Assessment Billing TAWNYA-7 Assessment Tool: TAWNYA-7 Assessment 92975 Review of Systems Const Denies body aches, Denies fatigue, Denies fever(s), Denies frequent falls, Denies headache(s) and Denies weakness Eyes Reports no additional complaints and Denies change in vision ENT Denies dysphagia, Denies dizziness, Denies facial pain, Denies headache(s), Denies nasal congestion and Denies odynophagia Card Denies chest pain, Denies syncope, Denies irregular heart rhythm, Denies leg edema, Denies lightheadedness and Denies dyspnea Resp Denies cough and Denies dyspnea GI Denies constipation, Denies dysphagia, Denies dyspepsia, Denies diarrhea, Denies nausea, Denies odynophagia and Denies vomiting Denies urinary frequency, Denies dysuria, Denies urinary hesitancy and Denies urinary urgency Musc Denies back pain and Denies myalgias Skin/Breast Reports system reviewed and no additional complaints, except as documented Neuro Denies dizziness, Denies syncope, Denies frequent falls, Denies headache(s) and Denies weakness Psych Reports no additional complaints Endo Denies fatigue Physical exam (Primary Care) Vital Signs: Last Vital Signs Pulse 64 12/03/23 08:44 BP 122/72 12/03/23 08:44 Pulse Ox 98 12/03/23 08:44 Oxygen Delivery Method Room Air 12/03/23 08:44 BMI result Body Mass Index 21.0 Tobacco/Smoking Status: Tobacco use Status Tobacco use date assessed 12/03/23 12/03/23 08:48 Patient Tobacco Use Status Former Tobacco user 12/03/23 08:48 Tobacco use type Cigarette 12/03/23 08:48 e-Cigarette/Vaping Use Never Used 12/03/23 08:48 PHQ-9: PHQ-9 Score PHQ-9: Total score 1 12/03/23 08:53 Depression Screening Interpretation: Negative Thrive Assessment: Date of Thrive Assessment Date Thrive assessed 03/26/23 12/03/23 08:48 Const General: cooperative, healthy appearing, comfortable and no acute distress Orientation/consciousness: patient oriented x3 HENMT Head: Yes normocephalic Ears: hearing grossly normal bilaterally General nose exam: Normal external nose present Eyes General: appearance normal, both eyes and all related structures Conjunctivae: conjunctivae normal Neck Neck: Yes full ROM and Yes no lymphadenopathy Resp Effort & Inspection: normal respiratory effort Auscultation: clear to auscultation bilaterally, no crackles, no rales, no rhonchi and no wheezes Cardio Rate: regular rate Rhythm: regular rhythm Skin General skin exam: no rashes or lesions noted Neuro General: patient oriented x3 Gait exam (Neuro): Normal gait present Extrem General: Yes normal to inspection, Yes full ROM and No edema Psych Affect: normal affect Attitude: cooperative Insight: Good insight present (Psych) Judgement: Good judgement present (Psych) Assessment and Plan Assessment & Plan (1) Pre-op evaluation: Code(s): Z01.818 - Encounter for other preprocedural examination Plan: Regarding preop clearance, the patient is at moderate risk for proposed surgery due to her age however her comorbidities are well managed at this time.?Reviewed with the patient that no surgery is completely free of risk and that this examination is to assist the surgeon in reviewing informed consent. Last blood work from January 2023 advised patient to follow up with surgeon to see if they would like updated blood work, orders placed. Patient is not currently on any blood thinners, NSAIDs, or antiplatelet medications. Plan This note was constructed using voice recognition software. While every effort has been made to ensure accuracy and metal bench patternmaker, still areas may have been included sometimes these areas may affect the content or meeting of the given symptoms. Total time spent caring for the patient today was 30 minutes. This includes time spent before the visit reviewing the chart, time spent during the visit, and time spent after the visit and documentation. Orders: Orders Complete Blood Count Auto Diff Today Z00.00 - Encounter for general adult medical examination without abnormal findings Comprehensive Met. Panel Today Z00.00 - Encounter for general adult medical examination without abnormal findings Free T4 (Free Thyroxine) Today Z00.00 - Encounter for general adult medical examination without abnormal findings Vitamin B12 and Folate Today Z00.00 - Encounter for general adult medical examination without abnormal findings Hemoglobin A1c Today R73.02 - Impaired glucose tolerance (oral), Z00.00 - Encounter for general adult medical examination without abnormal findings TSH reflex Free T4 Today Z00.00 - Encounter for general adult medical examination without abnormal findings Vitamin D 25-OH (D2 and D3) Today Z00.00 - Encounter for general adult medical examination without abnormal findings Coding Level of Care Code Est Pt Level 3 (60249) Diagnoses Pre-op evaluation Z01.818 Additional Codes TAWNYA-7 Assessment Billing - TAWNYA-7 Assessment Tool: TAWNYA-7 Assessment 41451 ([id number])
== END 2023-12-03 09:24 | disposition home or self-care (01) ==
PROVIDERS: PCP Internal Medicine
DX: Z01.818 Encounter for other preprocedural examination (principal)

== ENCOUNTER → 2023-12-03 08:30 | Outpatient (BNVA) | payer MEDICARE, SELFPAY | PROVIDERS: PCP Internal Medicine | DX: Z01.818 Encounter for other preprocedural examination (principal); H26.9 Unspecified cataract; I10 Essential (primary) hypertension; E78.00 Pure hypercholesterolemia, unspecified | CPT/HCPCS: 96127; 99212 ==

== ENCOUNTER 2024-03-20 07:11 | Outpatient (REF) | payer MEDICARE, SELFPAY | END 2024-03-20 07:12 | disposition home or self-care (01) | LOC: HO.MAMMO 07:11 | PROVIDERS: PCP Internal Medicine; Visit Provider Internal Medicine | DX: Z12.31 Encounter for screening mammogram for malignant neoplasm of breast (principal) | CPT/HCPCS: 77063; 77067 ==

== ENCOUNTER → 2024-03-20 07:30 | Outpatient (BNV) | payer MEDICARE, SELFPAY | PROVIDERS: PCP Internal Medicine; Visit Provider Internal Medicine | DX: Z12.31 Encounter for screening mammogram for malignant neoplasm of breast (principal) | CPT/HCPCS: 77063; 77067 ==

== ENCOUNTER 2024-03-20 07:48 | Outpatient (REF) | payer MEDICARE, SELFPAY ==
[2024-03-20 08:08] LABS: MANUAL DIFF FLAG NO
[2024-03-20 08:38] LABS: Basophils Percent Auto 0.5 % (0-2); Eosinophils Absolute Auto 0.1 X10*3/uL (0.0-0.4); Eosinophils Percent Auto 1.5 % (0-4); Hematocrit 39.4 % (37.0-47.0); Imm Gran Abs Auto 0.02 X10*3/uL (0.00-0.03); Imm Gran Pct Auto 0.3 % (0.0-0.4); Lymphocytes Absolute Auto 1.8 X10*3/uL (1.2-4.9); Lymphocytes Percent Auto 29.9 % (20-40); Mean Corpuscular Hemoglobin 29.6 pg (27.0-33.0); Mean Corpuscular Volume 89.7 fL (80.0-98.0); Mean Platelet Volume 9.7 fL (9.4-12.3); Monocytes Absolute Auto 0.6 X10*3/uL (0.1-1.2); Monocytes Percent Auto 10.2 % (2-11); Neutrophils Absolute Auto 3.4 x10*3/uL (2.0-8.3); Neutrophils Percent Auto 57.6 % (45-73); Platelet Count 303 X10*3/uL (160-400); Red Blood Count 4.39 X10*6/uL (4.20-5.50); Red Cell Distribution Width 12.9 % (11.0-16.0); White Blood Count 5.9 X10*3/uL (4.8-10.8)
[2024-03-20 08:48] LABS: Estimated Average Glucose 117 mg/dL; Hemoglobin A1C 130.4467 umol/L; Hemoglobin A1c % 5.7 % (<6.0); Total Hemoglobin (HGBA1C) 3325.0454 umol/L
[2024-03-20 09:10] LABS: Alanine Aminotransferase 23 U/L (0-31); Albumin Level 4.5 g/dL (3.5-5.0); Alkaline Phosphatase 55 U/L (39-117); Anion Gap 15 (12-20); Aspartate Amino Transferase 26 U/L (5-31); Bilirubin Total 0.7 mg/dL (0.0-1.0); Blood Urea Nitrogen 13 mg/dL (9-16); Calcium 9.5 mg/dL (8.4-10.2); Carbon Dioxide 26 mmol/L (22-29); Chloride 103 mmol/L (96-108); Estimated Glomerular Filt Rate > 60; Glucose Random 108 mg/dL (60-115); Potassium 4.6 mmol/L (3.3-5.1); Sodium 139 mmol/L (135-145); Total Protein 7.9 g/dL (6.5-8.0)
[2024-03-20 09:29] LABS: TSH reflex Free T4 0.56 uIU/mL (0.32-4.0)
[2024-03-20 09:37] LABS: Folate > 20.0 ng/mL (> or = 4.0); Vitamin B12 949 pg/mL (200-900)
[2024-03-24 15:58] LABS: Vitamin D 25-OH, D2 <4 ng/mL; Vitamin D 25-OH, D3 51 ng/mL; Vitamin D 25-OH, Total 51 ng/mL (30-100)
== END 2024-03-20 07:49 | disposition home or self-care (01) ==
LOC: HO.LAB 07:48
PROVIDERS: PCP Internal Medicine
DX: Z00.00 Encounter for general adult medical examination without abnormal findings (principal); R73.02 Impaired glucose tolerance (oral)
CPT/HCPCS: 36415; 80053; 82306; 82607; 82746; 83036; 84439; 84443; 85025

== ENCOUNTER 2024-03-31 08:39 | Outpatient (AMB) | payer MEDICARE, SELFPAY ==
[2024-03-31 08:50] VITALS: BP 128/64; PULSE 71; O2SAT 95; BMI 21.6
--- NOTE | 2024-03-31 08:50 | AM.OFFVISMDC ---
Intake Vital Signs 03/31/24 08:50 Height 4 ft 11 in Weight 107 lb BMI 21.6 BP 128/64 Blood Pressure Location Lt brachial Position Sitting Pulse 71 Pulse Source Pulse Oximeter Pulse Oximetry (%) 95 Oxygen Delivery Method Room Air Intake Visit Reasons: [facility] [id number] Allergies tree nut [TREE NUT] Allergy (Intermediate, Verified 03/31/24 08:53) MOUTH ITCHES nuts Allergy (Unknown, Uncoded 03/31/24 08:53) oral swelling Medication List - Last Reconciled 03/31/24 by Rony Castellano MD alendronate (Fosamax) 70 mg PO QWEEK 90 days lisinopril 20 mg PO DAILY vrussuqi-zic-hbcm-FA-vit K-lut 4 mg iron-200 mcg-25 mcg (Centrum Minis Women 50 Plus) tabs PO simvastatin 5 mg PO QPM HPI [facility] G0439 HPI Details The patient is a 69-year-old female presenting for an annual wellness examination and review of health maintenance. She has a known history of essential hypertension, controlled with lisinopril 20 mg daily, and hyperlipidemia, managed with simvastatin 5 mg daily. The patient also has a history of osteoporosis, for which she has been on alendronate therapy for approximately 10 years with noted improvement in bone density. Her most recent bone density analysis in February 2023 showed an increase in hip bone mass by 4% and spine bone mass by 14%. She had cataract surgery on December 17 and 2022, with successful outcomes, performed by Dr. Maya in [place]. Regarding blood glucose, previous fasting glucose was noted at 108 mg/dL, with a recent HbA1c measured at 5.7%, indicating pre-diabetic range but without current diagnosis of diabetes. The patient denies episodes of dizziness, loss of consciousness, shortness of breath, or chest discomfort. She has no recent history of surgeries since her cataract removal. - Recent mammogram results normal; conducted on March 20, 2023. - Bone density testing in February 2023 showed a 4% increase in hip and 14% increase in spinal bone mass. - Advised continuation of osteoporosis medication given improvement. - Patient is current with colonoscopy screening; last performed in July 2022. - Denial of new medication allergies. - Blood pressure and blood counts are within normal ranges. - B12 level at 949 ng/L, adjusted from prior elevated levels. - Alcohol consumption is moderate, 1-5 glasses of wine per week, never more than one per occasion. - Smoker at age 29, but quit 40 years ago. - Engages in physical activity, walking 1.5 hours a day, six days a week. - Takes Centrum 50+ vitamin daily. - Active, living independently, and reported stable family relationships. - Cardiovascular: Denies chest pain, palpitations, or syncope. - Respiratory: Denies shortness of breath, cough, or wheezing. - Gastrointestinal: Denies nausea, vomiting, diarrhea, or constipation. Bowel movements once daily with no issues. - Genitourinary: Denies dysuria or hematuria. - Musculoskeletal: Denies joint pain or swelling. - Neurological: Denies headaches or dizziness. - Other: Good hearing; denies hearing loss or ringing in ears. - Labs: Hemoglobin A1c is 5.7%. Vitamin B12 is 949 ng/L. - Imaging: Recent mammogram normal. - Tests: Bone density shows increase in hip and spinal mass. [facility] Medical History Tubular adenoma of colon Breast cancer screening by mammogram Screening for hypothyroidism Hypercholesterolemia Osteoporosis Hypertension Surgical History History of colonoscopy History of appendectomy Family History Father Lung cancer Hypertension Mother Bladder cancer Hypertension Kidney malignancy Brother Colon cancer Sister Colon cancer Social History (Updated 03/31/24 @ 09:23 by Rony Castellano MD) Housing: Condominium Alcohol intake: current Alcohol intake frequency: a few times a month Alcohol type: wine Comment: 2-5 x a week 1 glass Patient Tobacco Use Status: Former Tobacco user Tobacco use type: Cigarette Years Smoked: 1985 quit 29 years old e-Cigarette/Vaping Use: Never Used service: No Current occupational status: retired Cognitive needs: No Hearing needs: No Vision needs: No Questionnaire Medicare Wellness Checkup [age] What gender do you identify with?: female During the past 4 weeks, how much have you been bothered by emotional problems such as feeling anxious, depressed, irritable, sad or downhearted, and blue?: not at all During the past 4 weeks, has your physical & emotional health limited your social activities with family, friends, neighbors, or groups?: not at all During the past 4 weeks, how much bodily pain have you generally had?: no pain During the past 4 weeks, was someone available to help you if you needed & wanted help?: yes, as much as I wanted During the past 4 weeks, what was the hardest physical activity you could do for at least 2 minutes?: moderate Can you get to places out of walking distance without help? (For eg., can you travel alone on buses, taxis or drive your car?): Yes Can you go shopping for groceries or clothes without someone's help?: Yes Can you prepare your own meals?: Yes Can you do your housework without help?: Yes Because of any health problems, do you need the help of another person with your personal care needs such as eating, bathing, dressing or getting around the house?: No Can you handle your own money without help?: Yes During the past 4 weeks, how would you rate your health in general?: excellent During the past 4 weeks how have things been going for you?: very well; could hardly better Are you having difficulties driving your car?: no Do you always fasten your seat belt when you are in a car?: yes, usually During past 4 weeks, have you been bothered by the following: never: Falling or dizzy when standing up, Sexual problems?, Trouble eating well?, Teeth or denture problems?, Problems using the telephone? and Tiredness or fatigue? Have you fallen 2 or more times in the past year?: No Are you afraid of falling?: No Are you a smoker?: no During the past 4 weeks, how many drinks of wine, beer, or other alcoholic beverages did you have?: 2-5 drinks per week Do you exercise for about 20 minutes 3 or more times a week?: yes, most of the time Have you been given information to help with the following?: no: Hazards in your house that might hurt you? and no: Keeping track of your medications? How often do you have trouble taking medicines the way you have been told to take them?: I always take medicine as prescribed How confident are you that you can control & manage most of your health problems?: very confident What is your race?: White PHQ-9 Over the last 2 weeks, how often have you been bothered by any of the following problems? 1. Little interest or pleasure in doing things: not at all 2. Feeling down, depressed, or hopeless: not at all 3. Trouble falling or staying asleep, or sleeping too much: not at all 4. Feeling tired or having little energy: not at all 5. Poor appetite or overeating: not at all 6. Feeling bad about yourself - or that you are a failure or have let yourself or your family down: not at all 7. Trouble concentrating on things, such as reading the newspaper or watching television: not at all 8. Moving or speaking so slowly that other people could have noticed. Or the opposite - being so fidgety or restless that you have been moving around a lot more than usual: not at all 9. Thoughts that you would be better off or of hurting yourself in some way: not at all Total score: 0 Depression Screening Interpretation: Negative Depression Screening Done: Yes 36966 - PHQ-9 Billing: Yes Source: Developed by Drs. Faustino Ponce, Jacinta Fuller, Patrice Ch and colleagues, with an educational daniel from [employer]. Review of Systems Const Denies poor appetite and Denies weakness Eyes Denies no additional complaints ENT Reports Normal hearing present, Denies dizziness, Denies nasal congestion, Denies tinnitus and Denies sore throat Card Denies chest pain, Denies syncope, Denies rapid heart rate and Denies dyspnea Resp Denies cough and Denies dyspnea GI Denies change in stool character, Reports constipation, Denies diarrhea, Denies nausea and Denies vomiting Denies urinary frequency, Denies difficulty voiding and Denies dysuria Neuro Reports Normal hearing present, Denies confusion, Denies dizziness, Denies syncope and Denies weakness Psych Denies confusion Physical Exam Vital Signs: Last Vital Signs Pulse 71 03/31/24 08:50 BP 128/64 03/31/24 08:50 Pulse Ox 95 03/31/24 08:50 Oxygen Delivery Method Room Air 03/31/24 08:50 BMI result Body Mass Index 21.6 Const General: No confusion Orientation/consciousness: No confusion HEENT Head: Yes normocephalic Ears: external ears normal and TM's normal bilaterally Face and sinus: Yes normal facial exam Mouth: moist mucous membranes Throat: Yes tonsils normal Eyes Conjunctivae: conjunctivae normal Pupils: Equal, round and reactive pupils present and Pupil accommodation reflex normal Direct Ophthalmoscopy: normal light reflex Neck Neck: No lymphadenopathy Thyroid: Thyroid normal Chest Chest palpation & inspection: normal inspection of the chest Resp Effort & Inspection: normal respiratory effort and no audible wheezes Auscultation: clear to auscultation bilaterally, no crackles, no wheezes and lung sounds not diminished Cardio Rate: regular rate Rhythm: regular rhythm Peripheral pulses: radial pulses present and dorsalis pedis present GI Palpation (GI): no masses Auscultation: normal bowel sounds and normoactive bowel sounds Rectal Exam - Female: deferred Skin General skin exam: no rashes or lesions noted Rashes: no rashes Neuro General: No confusion Cranial nerves: Yes Equal, round and reactive pupils present and Yes Normal hearing present Cognition (Neuro): normal cognition Gait exam (Neuro): Normal gait present Motor exam (neuro): 5/5 motor strength present throughout Deep tendon reflexes (DTR's): Right brachioradialis reflex intensity grade: 2+, Left brachioradialis reflex intensity grade: 2+, Right patellar reflex intensity grade: 2+ and Left patellar reflex intensity grade: 2+ Extrem General: No edema Assessment & Plan Assessment & Plan (1) Encounter for subsequent annual wellness visit (AWV) in Medicare patient: Code(s): Z00.00 - Encounter for general adult medical examination without abnormal findings (2) Hypertension: Code(s): I10 - Essential (primary) hypertension Qualifiers: Hypertension type: essential hypertension Qualified Code(s): I10 - Essential (primary) hypertension (3) Osteoporosis: Comment: May 2020, 02/2023 Code(s): M81.0 - Age-related osteoporosis without current pathological fracture Qualifiers: Osteoporosis type: age-related Presence of current pathological fracture: without current pathological fracture Qualified Code(s): M81.0 - Age-related osteoporosis without current pathological fracture (4) Hypercholesterolemia: Code(s): E78.00 - Pure hypercholesterolemia, unspecified (5) Impaired glucose tolerance: Code(s): R73.02 - Impaired glucose tolerance (oral) Plan - Continue current medication regimen for hypertension, hyperlipidemia, and osteoporosis. - Maintain regular exercise and dietary habits to manage blood pressure and lipid levels. - Continue annual bone density monitoring and evaluate for potential bisphosphonate holiday. - Routine blood glucose monitoring with periodic HbA1c to ensure levels remain stable. - No new prescriptions or changes to current treatment necessary at this time. I discussed with the patient the current management of her hypertension, hyperlipidemia, and osteoporosis. We reviewed the effectiveness of her current medications and the significant improvements in her bone density, stressing the importance of continued adherence. The potential future consideration of a drug holiday for her osteoporosis medication, owing to her prolonged treatment and current bone density improvements, was introduced. The slight elevation in blood glucose was discussed with reassuring blood sugar measurement and dietary habits credit counselor given. The patient was informed that her recent mammogram results were normal. I advised her on the seasonal flu and COVID precautions, including necessary hygiene practices, acknowledging her preference against vaccination. - Continue taking lisinopril, simvastatin, and alendronate as prescribed. - Maintain regular physical activity and a balanced diet. - Ensure periodic eye examinations given recent cataract surgeries. - Monitor blood pressure at home regularly. - Schedule follow-up visits annually unless health issues arise before. - Maintain current vitamin regimen without change. - Increase attention to washing hands and personal hygiene, especially during the current flu season. Orders: Orders Complete Blood Count Auto Diff 1 Year E78.00 - Pure hypercholesterolemia, unspecified Comprehensive Met. Panel 1 Year E78.00 - Pure hypercholesterolemia, unspecified Lipid Panel 1 Year E78.00 - Pure hypercholesterolemia, unspecified Thyroid Stimulating Hormone 1 Year E78.00 - Pure hypercholesterolemia, unspecified Free T4 (Free Thyroxine) 1 Year E78.00 - Pure hypercholesterolemia, unspecified Vitamin B12 and Folate 1 Year E78.00 - Pure hypercholesterolemia, unspecified Vitamin D 25-OH Total 1 Year E78.00 - Pure hypercholesterolemia, unspecified Hemoglobin A1c 1 Year E78.00 - Pure hypercholesterolemia, unspecified Quality Reporting (2019) Depression/Bipolar (159/160/161/177) PHQ-9: Total score: 0 Coding Level of Care Code Medicare Subsequent (G0439) Diagnoses Encounter for subsequent annual wellness visit (AWV) in Medicare patient Z00.00 Essential hypertension I10 Hypertension type: essential hypertension Age-related osteoporosis without current pathological fracture M81.0 Osteoporosis type: age-related Presence of current pathological fracture: without current pathological fracture Hypercholesterolemia E78.00 Impaired glucose tolerance R73.02 Additional Codes PHQ-9 - 45319 - PHQ-9 Billing: Yes ([id number])
== END 2024-03-31 09:35 | disposition home or self-care (01) ==
PROVIDERS: PCP Internal Medicine; Visit Provider Internal Medicine
DX: Z00.00 Encounter for general adult medical examination without abnormal findings (principal); I10 Essential (primary) hypertension; M81.0 Age-related osteoporosis without current pathological fracture; E78.00 Pure hypercholesterolemia, unspecified; R73.02 Impaired glucose tolerance (oral)

== ENCOUNTER → 2024-03-31 08:39 | Outpatient (BNVA) | payer MEDICARE, SELFPAY | PROVIDERS: PCP Internal Medicine; Visit Provider Internal Medicine | DX: Z00.00 Encounter for general adult medical examination without abnormal findings (principal); I10 Essential (primary) hypertension; M81.0 Age-related osteoporosis without current pathological fracture; E78.00 Pure hypercholesterolemia, unspecified; R73.02 Impaired glucose tolerance (oral); Z87.891 Personal history of nicotine dependence; Z79.899 Other long term (current) drug therapy | CPT/HCPCS: 96127 ==

== ENCOUNTER 2024-07-02 08:12 | Outpatient (AMB) | payer MEDICARE, SELFPAY ==
[2024-07-02 08:24] VITALS: BP 130/80; PULSE 71; TEMP 36.6; O2SAT 99
--- NOTE | 2024-07-02 08:24 | MHC.OFFWIV ---
Intake Vital Signs 07/02/24 08:24 Weight 104 lb BP 130/80 Blood Pressure Location Rt brachial Position Sitting Pulse 71 Pulse Source Pulse Oximeter Temp 97.9 F Temp Source Oral Pulse Oximetry (%) 99 Oxygen Delivery Method Room Air Intake Visit Reasons: EP Sinus Intake Note: Patient here for sinus pressure that has been present for about 2 months on and off. Patient Tobacco Use Status: Former Tobacco user Allergies tree nut [TREE NUT] Allergy (Intermediate, Verified 07/02/24 08:24) MOUTH ITCHES nuts Allergy (Unknown, Uncoded 07/02/24 08:24) oral swelling Do you need a note to return to daycare/school/sports/work: No HPI HPI Comments History of Present Illness Details she presents to office with sinus issues She said sinuses feel raw + post nasal drip with poor taste + foul odor to nares Ongoing x a ew months intermittently; its been ongoing now more lately SHe said dry hurt filling No runny nose fever or chills SHe denies headaches or vision changes Has tried aspirin without relief No ST or difficulty swallowing No coigh, congestion, shortness of breath No flu like symptoms recently that she can recall; had covid a ew years ago but nothing recently PFSH Medical History Tubular adenoma of colon Breast cancer screening by mammogram Screening for hypothyroidism Hypercholesterolemia Osteoporosis Hypertension Surgical History History of colonoscopy History of appendectomy Family History Father Lung cancer Hypertension Mother Bladder cancer Hypertension Kidney malignancy Brother Colon cancer Sister Colon cancer Social History (Updated 03/31/24 @ 09:23 by Rony Castellano MD) [facility] Alcohol intake: current Alcohol intake frequency: a few times a month Alcohol type: wine Comment: 2-5 x a week 1 glass Patient Tobacco Use Status: Former Tobacco user Tobacco use type: Cigarette Years Smoked: 1985 quit 29 years old e-Cigarette/Vaping Use: Never Used service: No Current occupational status: retired Cognitive needs: No Hearing needs: No Vision needs: No Review of Systems Const Denies body aches, Denies chills, Denies fatigue, Denies fever(s), Denies headache(s) and Denies poor appetite Eyes Denies change in vision ENT Reports halitosis (taste abnormal and smell abnormal), Denies dizziness, Denies ear discharge, Denies otalgia, Denies facial pain, Denies headache(s), Denies mouth lesions, Denies nasal congestion, Denies nasal discharge, Denies nasal trauma, Denies neck pain, Reports nose pain, Reports post nasal drip, Denies tinnitus, Reports sinus pain, Denies sinus pressure, Denies sore throat and Denies tongue swelling Card Denies chest pain and Denies dyspnea Resp Denies cough and Denies dyspnea Musc Denies neck pain Skin/Breast Denies rash Neuro Denies dizziness and Denies headache(s) Endo Denies fatigue Aller/Immun Denies tongue swelling Physical Exam Vital Signs: Last Vital Signs Temp 97.9 F 07/02/24 08:24 Pulse 71 07/02/24 08:24 BP 130/80 07/02/24 08:24 Pulse Ox 99 07/02/24 08:24 Oxygen Delivery Method Room Air 07/02/24 08:24 General: Non-toxic, NAD. Speaking full sentences. Skin: Warm dry throughout Eye: EOMI HENT: Airway patent. Uvula midline. No pharyngeal erythema or edema. No TELEPHONE INFORMATION SUPERVISOR. + edematous R sided turninates with associated posterior rhinorrhea. No obstruction or septal hematoma noted. No ttp frontal maxillary or ethmoid sinuses Bilateral canals clear. TM non-erythematous, non-bulging. No TM perforation or hemotympanum noted. Respiratory: CTA bilaterally. No wheezes, rales or rhonchi Lymph: No lymphadenopathy anterior cervical or tonsillar Cardiac: RRR. No murmur MSK: Full ROM extremities. Neurology: Alert. No aphasia or facial droop. Gait without abnormality Psych: Good mood and affect Assessment & Plan Assessment & Plan (1) Bacterial sinusitis: Code(s): J32.9 - Chronic sinusitis, unspecified; B96.89 - Other specified bacterial agents as the cause of diseases classified elsewhere Plan: Patient seen and evaluated. Augmentin to pharmacy Call if symptoms do not improve Patient gave verbal understanding and had no additional questions or concerns at time of discharge All questions answered Medications: New amoxicillin-pot clavulanate 875-125 mg 1 tab PO BID 20 tabs 0RF Coding Level of Care Code Est Pt Level 3 (90184) Diagnoses Bacterial sinusitis J32.9; B96.89
== END 2024-07-02 09:02 | disposition home or self-care (01) ==
PROVIDERS: PCP Internal Medicine; Visit Provider Physician Assistant
DX: J32.9 Chronic sinusitis, unspecified (principal); B96.89 Other specified bacterial agents as the cause of diseases classified elsewhere

== ENCOUNTER → 2024-07-02 08:12 | Outpatient (BNVA) | payer MEDICARE, SELFPAY | PROVIDERS: PCP Internal Medicine; Visit Provider Physician Assistant | DX: J32.9 Chronic sinusitis, unspecified (principal); B96.89 Other specified bacterial agents as the cause of diseases classified elsewhere | CPT/HCPCS: 99212 ==

== ENCOUNTER 2024-07-16 08:41 | Outpatient (AMB) | payer MEDICARE, SELFPAY ==
--- NOTE | 2024-07-16 08:55 | AM.OFFWIN_ITS ---
Intake Vital Signs 07/16/24 08:56 Height 4 ft 11 in Weight 105 lb 8 oz BMI 21.3 BP 120/80 Blood Pressure Location Lt brachial Position Sitting Pulse 76 Pulse Source Pulse Oximeter Temp 98 F Temp Source Oral Pulse Oximetry (%) 98 Oxygen Delivery Method Room Air Intake Visit Reasons: EP sore throat Intake Note: Patient complains of sore throat with yellowish tent on tongue and top roof of mouth. Patient Tobacco Use Status: Former Tobacco user Project Control Analyst Required: No Social Worker Health Services: Not Required per policy Accompanied by: Self / Same As Patient Allergies tree nut [TREE NUT] Allergy (Intermediate, Verified 07/16/24 08:56) MOUTH ITCHES nuts Allergy (Unknown, Uncoded 07/16/24 08:56) oral swelling Do you need a note to return to daycare/school/sports/work: No HPI HPI Comments History of Present Illness Details Patient is a 69yo F who presents to office with ST complaint Seen 07/02 for bacterial sinusitis and given augmentin Symptoms resolved But states this am she woke up and she saw yellow on top of mouth and tongue yesterday She said ST yesterday was 3/10 She did not take any medicine for it Used salt water gargles She said ST now present now 0/10 She said has some yellow discoloration so wanted to be seen No fever or chills Feels good otherwise No difficulty swallowing PFSH Medical History Tubular adenoma of colon Breast cancer screening by mammogram Screening for hypothyroidism Hypercholesterolemia Osteoporosis Hypertension Surgical History History of colonoscopy History of appendectomy Family History Father Lung cancer Hypertension Mother Bladder cancer Hypertension Kidney malignancy Brother Colon cancer Sister Colon cancer Social History (Updated 03/31/24 @ 09:23 by Rony Castellano MD) Housing: Condominium Alcohol intake: current Alcohol intake frequency: a few times a month Alcohol type: wine Comment: 2-5 x a week 1 glass Patient Tobacco Use Status: Former Tobacco user Tobacco use type: Cigarette Years Smoked: 1984 quit 29 years old e-Cigarette/Vaping Use: Never Used service: No Current occupational status: retired Cognitive needs: No Hearing needs: No Vision needs: No Review of Systems Const Denies chills and Denies fever(s) ENT Denies otalgia, Denies nasal congestion, Denies sinus pain, Reports sore throat, Denies throat swelling and Denies tongue swelling Resp Denies cough Aller/Immun Denies throat swelling and Denies tongue swelling Physical Exam Vital Signs: Last Vital Signs Temp 98 F 07/16/24 08:56 Pulse 76 07/16/24 08:56 BP 120/80 07/16/24 08:56 Pulse Ox 98 07/16/24 08:56 Oxygen Delivery Method Room Air 07/16/24 08:56 BMI result Body Mass Index 21.3 General: Non-toxic, NAD. Speaking full sentences. Handling secretions Skin: Warm dry throughout Eye: EOMI HENT: Airway patent. Uvula midline. No pharyngeal erythema or edema. No MODEL SET ARTIST. No exudates No masses or tenderness to palpation floor of mouth No tongue edema There is very minimal light yellow discoloration to dorsal aspect of tongue. None noted to roof of mouth, lateral gingivae or gums Lymph: No lymphadenopathy noted Respiratory: No tachypnea Cardiac: RRR. MSK: Full ROM extremities. Neurology: Alert. No aphasia or facial droop. Gait without abnormality Psych: Good mood and affect Results AMB Rapid Strep AMB Rapid Strep Negative Last Edit by BRIE Orellana on 07/16/24 09:1 9 Results Reviewed Results Reviewed: Laboratory Last Values Strep Scn Rapid Clinic Negative 07/16/24 09:13 Assessment & Plan Assessment & Plan (1) Pharyngitis: Code(s): J02.9 - Acute pharyngitis, unspecified Qualifiers: Pharyngitis/tonsillitis etiology: unspecified etiology Qualified Code(s): J02.9 - Acute pharyngitis, unspecified Plan: Patient seen and evaluated. Strep: negative There is minimal discoloration to tongue which appear consistent with hygiene and not oral thrush She has no recent steroid use or known cause of a fungal etiology Discussed management at this time with mouth rinses with alcohol based mouth wash like listerine and monitoring She will return with any worsening sore throat, difficulty swallowing, fever or worsening discoloration or symptoms Patient gave verbal understanding and had no additional questions or concerns at time of discharge All questions answered Orders: Orders AMB Rapid Strep Screen Today J02.9 - Acute pharyngitis, unspecified Coding Level of Care Code Est Pt Level 3 (89932) Diagnoses Pharyngitis, unspecified etiology J02.9 Pharyngitis/tonsillitis etiology: unspecified etiology
[2024-07-16 08:56] VITALS: BP 120/80; PULSE 76; TEMP 36.6; O2SAT 98; BMI 21.3
== END 2024-07-16 09:43 | disposition home or self-care (01) ==
PROVIDERS: PCP Internal Medicine; Visit Provider Physician Assistant
DX: J02.9 Acute pharyngitis, unspecified (principal)

== ENCOUNTER → 2024-07-16 08:41 | Outpatient (BNVA) | payer MEDICARE, SELFPAY | PROVIDERS: PCP Internal Medicine | DX: J02.9 Acute pharyngitis, unspecified (principal) | CPT/HCPCS: 87880; 99212 ==